=== PATIENT | male | born 1950 | race Caucasian/White ===

== ENCOUNTER → 2017-08-30 | Outpatient (CLI) | payer MEDICARE, OTHER ==
[~2017-08-30] MED LIST: ALLO300 PO; BP MED; CEPH500 PO; COLCHICINE0.6 MG PO; Cialis20 MG PO; Flonase 0.05% N16 GM; Flurbiprofen100 MG; HYDCOR2.5B TOP; NEBI5 PO; Omeprazole20 M1; PARO20 PO; RXCEPH500 PO; SULTRIDS PO; Zocor20 MG PO
== END ==
LOC: LAB 13:07
DX: L03.116 Cellulitis of left lower limb (principal)
CPT/HCPCS: 87070; 87077; 87147; 87186; 87205

== ENCOUNTER → 2017-11-10 | Outpatient (CLI) | payer MEDICARE, OTHER | END | disposition home or self-care (01) | LOC: LAB SHORT 15:30 → LAB 15:30 | DX: L03.116 Cellulitis of left lower limb (principal) | CPT/HCPCS: 87070; 87077; 87147; 87186; 87205 ==

== ENCOUNTER → 2018-02-15 | Outpatient (CLI) | payer MEDICARE, OTHER | END | disposition home or self-care (01) | LOC: LAB 14:30 → LAB SHORT 14:30 | DX: L03.116 Cellulitis of left lower limb (principal) | CPT/HCPCS: 87070; 87077; 87147; 87186; 87205 ==

== ENCOUNTER → 2018-10-24 | Outpatient (CLI) | payer MEDICARE, OTHER | END | disposition home or self-care (01) | LOC: LAB 13:38 → LAB SHORT 13:38 | DX: L03.116 Cellulitis of left lower limb (principal) | CPT/HCPCS: 87070; 87077; 87147; 87186; 87205 ==

== ENCOUNTER → 2019-05-30 | Outpatient (CLI) | payer MEDICARE, OTHER | END | disposition home or self-care (01) | LOC: LAB 14:55 → LAB SHORT 14:55 | DX: L03.116 Cellulitis of left lower limb (principal) | CPT/HCPCS: 87070; 87077; 87147; 87186; 87205 ==

== ENCOUNTER → 2019-06-27 | Outpatient (CLI) | payer MEDICARE, OTHER | END | disposition home or self-care (01) | LOC: EDSTATUS 10:58 → LAB 17:38 → LAB SHORT 17:38 | DX: L03.116 Cellulitis of left lower limb (principal) | CPT/HCPCS: 87070; 87077; 87147; 87186; 87205 ==

== ENCOUNTER → 2019-07-25 | Outpatient (CLI) | payer MEDICARE, OTHER | END | disposition home or self-care (01) | LOC: LAB SHORT 14:00 → LAB 14:00 | DX: L03.116 Cellulitis of left lower limb (principal) | CPT/HCPCS: 87070; 87077; 87147; 87186; 87205 ==

== ENCOUNTER → 2021-03-26 | Outpatient (CLI) | payer MEDICARE, OTHER | END | disposition home or self-care (01) | LOC: LAB SHORT 10:16 → LAB 10:16 | DX: L08.0 Pyoderma (principal) | CPT/HCPCS: 87070; 87077; 87147; 87186; 87205 ==

== ENCOUNTER → 2022-06-10 | Outpatient (CLI) | payer MEDICARE, OTHER | END | disposition home or self-care (01) | LOC: LAB SHORT 10:12 → LAB 10:12 | DX: L08.0 Pyoderma (principal) | CPT/HCPCS: 87070; 87077; 87147; 87186; 87205 ==

== ENCOUNTER → 2023-05-19 | Outpatient (CLI) | payer MEDICARE, OTHER | LOC: LAB 09:35 → LAB SHORT 09:35 | DX: L08.0 Pyoderma (principal) | CPT/HCPCS: 87070; 87077; 87147; 87186; 87205 ==

== ENCOUNTER → 2023-06-23 | Outpatient (CLI) | payer MEDICARE, OTHER | LOC: LAB SHORT 11:40 → LAB 11:40 | DX: L08.0 Pyoderma (principal) | CPT/HCPCS: 87070; 87205 ==

== ENCOUNTER → 2023-07-22 | Outpatient (CLI) | payer MEDICARE, OTHER | LOC: LAB SHORT 11:42 → LAB 11:42 | DX: L08.0 Pyoderma (principal) | CPT/HCPCS: 87070; 87205 ==

== ENCOUNTER 2023-07-28 01:03 | Day surgery (SDC) | payer MEDICARE, OTHER | END 2023-07-28 22:47 | disposition home or self-care (01) | LOC: WOUND 01:03 | DX: L97.822 Non-pressure chronic ulcer of other part of left lower leg with fat layer exposed (principal); L97.322 Non-pressure chronic ulcer of left ankle with fat layer exposed; I87.2 Venous insufficiency (chronic) (peripheral); I73.9 Peripheral vascular disease, unspecified; I10 Essential (primary) hypertension; M10.00 Idiopathic gout, unspecified site | CPT/HCPCS: A9270 ==

== ENCOUNTER 2023-08-04 05:16 | Day surgery (SDC) | payer MEDICARE, OTHER | END 2023-08-04 22:52 | disposition home or self-care (01) | LOC: WOUND 05:16 | DX: I87.312 Chronic venous hypertension (idiopathic) with ulcer of left lower extremity (principal); L97.822 Non-pressure chronic ulcer of other part of left lower leg with fat layer exposed; I10 Essential (primary) hypertension | CPT/HCPCS: G0463 ==

== ENCOUNTER 2023-08-16 04:29 | Day surgery (SDC) | payer MEDICARE, OTHER | END 2023-08-16 22:40 | disposition home or self-care (01) | LOC: WOUND 04:29 | DX: I87.312 Chronic venous hypertension (idiopathic) with ulcer of left lower extremity (principal); I10 Essential (primary) hypertension; L97.822 Non-pressure chronic ulcer of other part of left lower leg with fat layer exposed; I87.2 Venous insufficiency (chronic) (peripheral) | CPT/HCPCS: A9270; G0463 ==

== ENCOUNTER 2023-08-23 03:31 | Day surgery (SDC) | payer MEDICARE, OTHER | END 2023-08-23 22:59 | disposition home or self-care (01) | LOC: WOUND 03:31 | DX: I87.312 Chronic venous hypertension (idiopathic) with ulcer of left lower extremity (principal); L97.822 Non-pressure chronic ulcer of other part of left lower leg with fat layer exposed; I10 Essential (primary) hypertension | CPT/HCPCS: A9270 ==

== ENCOUNTER 2023-08-30 03:29 | Day surgery (SDC) | payer MEDICARE, OTHER | END 2023-08-30 22:53 | disposition home or self-care (01) | LOC: WOUND 03:29 | DX: I87.312 Chronic venous hypertension (idiopathic) with ulcer of left lower extremity (principal); I10 Essential (primary) hypertension | CPT/HCPCS: A9270 ==

== ENCOUNTER 2023-09-06 02:57 | Day surgery (SDC) | payer MEDICARE, OTHER | END 2023-09-06 23:37 | disposition home or self-care (01) | LOC: WOUND 02:57 | DX: I87.312 Chronic venous hypertension (idiopathic) with ulcer of left lower extremity (principal); I10 Essential (primary) hypertension; I87.2 Venous insufficiency (chronic) (peripheral); L97.822 Non-pressure chronic ulcer of other part of left lower leg with fat layer exposed | CPT/HCPCS: A9270 ==

== ENCOUNTER 2023-09-13 02:07 | Day surgery (SDC) | payer MEDICARE, OTHER | END 2023-09-13 23:04 | disposition home or self-care (01) | LOC: WOUND 02:07 | DX: I87.312 Chronic venous hypertension (idiopathic) with ulcer of left lower extremity (principal); L97.822 Non-pressure chronic ulcer of other part of left lower leg with fat layer exposed; I87.2 Venous insufficiency (chronic) (peripheral); I10 Essential (primary) hypertension | CPT/HCPCS: A9270 ==

== ENCOUNTER 2023-09-20 00:26 | Day surgery (SDC) | payer MEDICARE, OTHER ==
[2023-09-20] MEDS ORDERED: Lidocaine HCl 4% Cream 5 GM ONE (14:56)
== END 2023-09-20 23:46 | disposition home or self-care (01) ==
LOC: WOUND 00:26
DX: I87.312 Chronic venous hypertension (idiopathic) with ulcer of left lower extremity (principal); I87.2 Venous insufficiency (chronic) (peripheral); I10 Essential (primary) hypertension; L97.822 Non-pressure chronic ulcer of other part of left lower leg with fat layer exposed
CPT/HCPCS: A9270

== ENCOUNTER 2023-09-27 08:00 | Day surgery (SDC) | payer MEDICARE, OTHER | END 2023-09-27 22:44 | disposition home or self-care (01) | LOC: WOUND 08:00 | DX: I87.312 Chronic venous hypertension (idiopathic) with ulcer of left lower extremity (principal); L97.822 Non-pressure chronic ulcer of other part of left lower leg with fat layer exposed; I10 Essential (primary) hypertension ==

== ENCOUNTER 2023-10-04 08:00 | Day surgery (SDC) | payer MEDICARE, OTHER | END 2023-10-05 22:37 | disposition home or self-care (01) | LOC: WOUND | DX: I87.312 Chronic venous hypertension (idiopathic) with ulcer of left lower extremity (principal); L97.822 Non-pressure chronic ulcer of other part of left lower leg with fat layer exposed; I10 Essential (primary) hypertension ==

== ENCOUNTER 2023-10-06 08:53 | Day surgery (SDC) | payer MEDICARE, OTHER | END 2023-10-06 22:51 | disposition home or self-care (01) | LOC: WOUND 08:53 | DX: I87.312 Chronic venous hypertension (idiopathic) with ulcer of left lower extremity (principal); L97.929 Non-pressure chronic ulcer of unspecified part of left lower leg with unspecified severity; I10 Essential (primary) hypertension ==

== ENCOUNTER → 2024-12-25 | Outpatient (CLI) | payer MEDICARE, OTHER | LOC: LAB 16:06 → LAB SHORT 16:06 | DX: L08.0 Pyoderma (principal) | CPT/HCPCS: 87070; 87077; 87147; 87186; 87205 ==

== ENCOUNTER 2025-03-26 01:00 | Day surgery (SDC) | payer MEDICARE, OTHER ==
[2025-03-26] MEDS ORDERED: Lidocaine HCl 4% Cream 5 GM ONE (07:51)
== END 2025-03-26 23:00 | disposition home or self-care (01) ==
LOC: WOUND 01:00
DX: I87.312 Chronic venous hypertension (idiopathic) with ulcer of left lower extremity (principal); L97.822 Non-pressure chronic ulcer of other part of left lower leg with fat layer exposed; I87.2 Venous insufficiency (chronic) (peripheral); I10 Essential (primary) hypertension; Z88.0 Allergy status to penicillin
CPT/HCPCS: A9270; G0463

== ENCOUNTER 2025-04-02 00:34 | Day surgery (SDC) | payer MEDICARE, OTHER ==
[2025-04-02] MEDS ORDERED: Lidocaine HCl 4% Cream 5 GM ONE (13:28)
== END 2025-04-02 23:23 | disposition home or self-care (01) ==
LOC: WOUND 00:34
DX: I87.312 Chronic venous hypertension (idiopathic) with ulcer of left lower extremity (principal); L97.822 Non-pressure chronic ulcer of other part of left lower leg with fat layer exposed; I87.2 Venous insufficiency (chronic) (peripheral); I10 Essential (primary) hypertension
CPT/HCPCS: A9270

== ENCOUNTER 2025-04-20 08:00 | Day surgery (SDC) | payer MEDICARE, OTHER | END 2025-04-20 23:00 | disposition home or self-care (01) | LOC: WOUND 08:00 | DX: I87.312 Chronic venous hypertension (idiopathic) with ulcer of left lower extremity (principal); L97.822 Non-pressure chronic ulcer of other part of left lower leg with fat layer exposed; I87.2 Venous insufficiency (chronic) (peripheral); I10 Essential (primary) hypertension | CPT/HCPCS: G0463 ==

== ENCOUNTER 2025-04-24 02:51 | Day surgery (SDC) | payer MEDICARE, OTHER | END 2025-04-24 23:00 | disposition home or self-care (01) | LOC: WOUND 02:51 | DX: I87.312 Chronic venous hypertension (idiopathic) with ulcer of left lower extremity (principal); L97.822 Non-pressure chronic ulcer of other part of left lower leg with fat layer exposed; I87.2 Venous insufficiency (chronic) (peripheral); I10 Essential (primary) hypertension ==

== ENCOUNTER 2025-05-02 04:32 | Day surgery (SDC) | payer MEDICARE, OTHER ==
[2025-05-02] MEDS ORDERED: Lidocaine HCl 4% Cream 5 GM ONE (12:54)
== END 2025-05-02 23:00 | disposition home or self-care (01) ==
LOC: WOUND 04:32
DX: I87.312 Chronic venous hypertension (idiopathic) with ulcer of left lower extremity (principal); L97.822 Non-pressure chronic ulcer of other part of left lower leg with fat layer exposed; I87.2 Venous insufficiency (chronic) (peripheral); I10 Essential (primary) hypertension
CPT/HCPCS: A9270

== ENCOUNTER 2025-05-08 02:35 | Day surgery (SDC) | payer MEDICARE, OTHER ==
[2025-05-08] MEDS ORDERED: Lidocaine HCl 4% Cream 5 GM ONE (09:55)
== END 2025-05-08 22:00 | disposition home or self-care (01) ==
LOC: WOUND 02:35
DX: I87.312 Chronic venous hypertension (idiopathic) with ulcer of left lower extremity (principal); L97.822 Non-pressure chronic ulcer of other part of left lower leg with fat layer exposed; I87.2 Venous insufficiency (chronic) (peripheral); I10 Essential (primary) hypertension
CPT/HCPCS: A9270

== ENCOUNTER 2025-05-15 00:34 | Day surgery (SDC) | payer MEDICARE, OTHER ==
[2025-05-15] MEDS ORDERED: Lidocaine HCl 4% Cream 5 GM ONE (09:18)
== END 2025-05-15 23:00 | disposition home or self-care (01) ==
LOC: WOUND 00:34
DX: I87.312 Chronic venous hypertension (idiopathic) with ulcer of left lower extremity (principal); L97.822 Non-pressure chronic ulcer of other part of left lower leg with fat layer exposed; I87.2 Venous insufficiency (chronic) (peripheral); I10 Essential (primary) hypertension
CPT/HCPCS: A9270

== ENCOUNTER 2025-05-22 01:44 | Day surgery (SDC) | payer MEDICARE, OTHER ==
[2025-05-22] MEDS ORDERED: Lidocaine HCl 4% Cream 5 GM ONE (08:51)
== END 2025-05-22 23:00 | disposition home or self-care (01) ==
LOC: WOUND 01:44
DX: I87.312 Chronic venous hypertension (idiopathic) with ulcer of left lower extremity (principal); L97.822 Non-pressure chronic ulcer of other part of left lower leg with fat layer exposed; I87.2 Venous insufficiency (chronic) (peripheral); I10 Essential (primary) hypertension
CPT/HCPCS: A9270

== ENCOUNTER 2025-05-29 00:56 | Day surgery (SDC) | payer MEDICARE, OTHER ==
[2025-05-29] MEDS ORDERED: Lidocaine HCl 4% Cream 5 GM ONE (08:57)
== END 2025-05-29 23:00 | disposition home or self-care (01) ==
LOC: WOUND 00:56
DX: I87.312 Chronic venous hypertension (idiopathic) with ulcer of left lower extremity (principal); L97.822 Non-pressure chronic ulcer of other part of left lower leg with fat layer exposed; I10 Essential (primary) hypertension
CPT/HCPCS: A9270

== ENCOUNTER 2025-06-05 01:20 | Day surgery (SDC) | payer MEDICARE, OTHER ==
[2025-06-05] MEDS ORDERED: Lidocaine HCl 4% Cream 5 GM ONE (08:59)
== END 2025-06-05 22:45 | disposition home or self-care (01) ==
LOC: WOUND 01:20
DX: I87.312 Chronic venous hypertension (idiopathic) with ulcer of left lower extremity (principal); L97.822 Non-pressure chronic ulcer of other part of left lower leg with fat layer exposed; I87.2 Venous insufficiency (chronic) (peripheral); I10 Essential (primary) hypertension
CPT/HCPCS: A9270

== ENCOUNTER 2025-06-12 00:44 | Day surgery (SDC) | payer MEDICARE, OTHER ==
[2025-06-12] MEDS ORDERED: Lidocaine HCl 4% Cream 5 GM ONE (08:47)
== END 2025-06-12 23:00 | disposition home or self-care (01) ==
LOC: WOUND 00:44
DX: I87.312 Chronic venous hypertension (idiopathic) with ulcer of left lower extremity (principal); L97.822 Non-pressure chronic ulcer of other part of left lower leg with fat layer exposed; I87.2 Venous insufficiency (chronic) (peripheral); I10 Essential (primary) hypertension
CPT/HCPCS: A9270

== ENCOUNTER 2025-06-19 00:35 | Day surgery (SDC) | payer MEDICARE, OTHER | END 2025-06-19 22:47 | disposition home or self-care (01) | LOC: WOUND 00:35 | DX: I87.312 Chronic venous hypertension (idiopathic) with ulcer of left lower extremity (principal); L97.829 Non-pressure chronic ulcer of other part of left lower leg with unspecified severity; I10 Essential (primary) hypertension ==

== ENCOUNTER 2025-06-26 01:01 | Day surgery (SDC) | payer MEDICARE, OTHER ==
[2025-06-26] MEDS ORDERED: Lidocaine HCl 4% Cream 5 GM ONE (08:42)
== END 2025-06-26 22:51 | disposition home or self-care (01) ==
LOC: WOUND 01:01
DX: I87.312 Chronic venous hypertension (idiopathic) with ulcer of left lower extremity (principal); L97.822 Non-pressure chronic ulcer of other part of left lower leg with fat layer exposed; I10 Essential (primary) hypertension
CPT/HCPCS: A9270

== ENCOUNTER 2025-07-03 01:43 | Day surgery (SDC) | payer MEDICARE, OTHER ==
[2025-07-03] MEDS ORDERED: Lidocaine HCl 4% Cream 5 GM ONE (08:52)
== END 2025-07-03 22:00 | disposition home or self-care (01) ==
LOC: WOUND 01:43
DX: I87.312 Chronic venous hypertension (idiopathic) with ulcer of left lower extremity (principal); L97.822 Non-pressure chronic ulcer of other part of left lower leg with fat layer exposed; I10 Essential (primary) hypertension
CPT/HCPCS: A9270

== ENCOUNTER 2025-07-10 02:26 | Day surgery (SDC) | payer MEDICARE, OTHER ==
[2025-07-10] MEDS ORDERED: Lidocaine HCl 4% Cream 5 GM ONE (09:00)
== END 2025-07-10 23:27 | disposition home or self-care (01) ==
LOC: WOUND 02:26
DX: I87.312 Chronic venous hypertension (idiopathic) with ulcer of left lower extremity (principal); L97.822 Non-pressure chronic ulcer of other part of left lower leg with fat layer exposed; I87.2 Venous insufficiency (chronic) (peripheral); I10 Essential (primary) hypertension
CPT/HCPCS: A9270

== ENCOUNTER 2025-07-17 02:23 | Day surgery (SDC) | payer MEDICARE, OTHER ==
[2025-07-17] MEDS ORDERED: Lidocaine HCl 4% Cream 5 GM ONE (09:01)
== END 2025-07-17 23:22 | disposition home or self-care (01) ==
LOC: WOUND 02:23
DX: I87.312 Chronic venous hypertension (idiopathic) with ulcer of left lower extremity (principal); L97.825 Non-pressure chronic ulcer of other part of left lower leg with muscle involvement without evidence of necrosis; I10 Essential (primary) hypertension
CPT/HCPCS: A9270

== ENCOUNTER 2025-07-24 00:24 | Day surgery (SDC) | payer MEDICARE, OTHER | END 2025-07-24 23:37 | disposition home or self-care (01) | LOC: WOUND 00:24 | DX: I87.312 Chronic venous hypertension (idiopathic) with ulcer of left lower extremity (principal); L97.825 Non-pressure chronic ulcer of other part of left lower leg with muscle involvement without evidence of necrosis; I10 Essential (primary) hypertension | CPT/HCPCS: A9270 ==

== ENCOUNTER 2025-08-07 08:45 | Day surgery (SDC) | payer MEDICARE, OTHER ==
[~2025-08-07 08:45] MED LIST changes: +Lidocaine HCl 4% Cream 5 GM ONE
== END 2025-08-08 23:00 | disposition home or self-care (01) ==
LOC: WOUND 08:45
DX: I87.312 Chronic venous hypertension (idiopathic) with ulcer of left lower extremity (principal); L97.825 Non-pressure chronic ulcer of other part of left lower leg with muscle involvement without evidence of necrosis; I87.2 Venous insufficiency (chronic) (peripheral); I10 Essential (primary) hypertension
CPT/HCPCS: A9270